=== PATIENT | male | born 1965 | race African-American/Black ===

== ENCOUNTER 2016-07-06 03:16 | Emergency (ER) | payer SELFPAY ==
[~2016-07-06] VITALS: Ht 180.3 cm; Wt 73.0 kg
[2016-07-06] MEDS ORDERED: MAGNESIUM CITRATE 296 ML SOLUTION. PO ONE (04:00)
[2016-07-06] MEDS ORDERED: KETOROLAC 15 MG/ML VIAL. IV ONE (04:00)
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
[2016-07-06 04:48] LABS: CALCIUM 8.8 mg/dL (8.5-10.1); CREATININE 1.4 mg/dL (0.7-1.3); GFR 64.6; POTASSIUM 4.3 mmol/L (3.5-5.1)
[2016-07-06 04:53] LABS: ALBUMIN 3.4 g/dL (3.4-5.0); DIRECT BILIRUBIN 0.2 mg/dL (0.0-0.2); TOTAL BILIRUBIN 0.7 mg/dL (0.2-1.0); TOTAL PROTEIN 7.1 g/dL (6.4-8.2)
[2016-07-06 05:00] VITALS: BP 148/90
== END 2016-07-06 05:20 | disposition home or self-care (01) ==
LOC: ER 03:16
DX: R10.32 Left lower quadrant pain (principal); R10.31 Right lower quadrant pain; K59.00 Constipation, unspecified; R11.0 Nausea; F12.10 Cannabis abuse, uncomplicated; Z98.890 Other specified postprocedural states
CPT/HCPCS: 36415; 80048; 80076; 83690; 96374; 99284; J1885